=== PATIENT | female | born 1955 | race Caucasian/White ===

== ENCOUNTER → 2020-09-16 | Day surgery (SDC) | payer MEDICARE, OTHER ==
[~2020-09-16] MED LIST: ASPIR-LOW81 MG PO; ASPIRIN 325MG325 MG PO; ESTRACE2 MG PO; GABAPENTIN800 MG PO; HYDROCODON-ACE1 EAC2 PO; HYDROXYZINE HCL25 MG PO; LEVOTHYROXINE200 MC2 PO; LISINOPRIL5 MG PO; LOPRESSOR 25 MG25 MG PO; LOW DOSE ASPIRI81 MG PO; NEURONTIN800 MG PO; NITROGLYCERIN0.4 MG SL; NORCO 7.5-3251 EACH PO; NORVASC10 MG PO; OMEPRAZOLE20 M1 PO; OMEPRAZOLE20 MG PO; PROZAC20 MG PO; PROZAC40 MG PO; SEROQUEL100 MG PO; SEROQUEL25 MG PO; SIMVASTATIN10 MG PO; SYNTHROID200 MCG PO; VITAMIN C500 M4 PO; VITAMIN D21250 MCG PO; ZESTRIL40 MG PO
[2020-09-16 08:52] LABS: HEMOGLOBIN 13.9 gm/dl (12.3-15.3); RED BLOOD COUNT 4.45 M/UL (4.00-5.10)
[2020-09-16 09:30] LABS: BUN/CREATININE RATIO 21 (0-10)
== END | disposition home or self-care (01) ==
LOC: OR 07:50
PROVIDERS: Podiatrist Foot & Ankle Surgery
DX: S82.851A Displaced trimalleolar fracture of right lower leg, initial encounter for closed fracture (principal); M25.471 Effusion, right ankle; M85.871 Other specified disorders of bone density and structure, right ankle and foot; E89.0 Postprocedural hypothyroidism; I10 Essential (primary) hypertension; I25.10 Atherosclerotic heart disease of native coronary artery without angina pectoris; I25.2 Old myocardial infarction; E78.5 Hyperlipidemia, unspecified; J18.9 Pneumonia, unspecified organism; M79.7 Fibromyalgia; M19.90 Unspecified osteoarthritis, unspecified site; Z98.51 Tubal ligation status; Z79.82 Long term (current) use of aspirin; Z79.899 Other long term (current) drug therapy
CPT/HCPCS: 36415; 73610; 73630; 76000; 80048; 85027; C1713; C1769; J0171; J0690; J1885; J2001; J2250; J2405; J2704; J2795; J3010; J7120; Q4133

== ENCOUNTER → 2020-10-03 | Outpatient (CLI) | payer MEDICARE, OTHER | LOC: KOH-I 15:22 | DX: S82.851D Displaced trimalleolar fracture of right lower leg, subsequent encounter for closed fracture with routine healing (principal) | CPT/HCPCS: 73610 ==

== ENCOUNTER → 2020-10-17 | Outpatient (CLI) | payer MEDICARE, OTHER | LOC: KOH-I 11:00 | DX: S82.851A Displaced trimalleolar fracture of right lower leg, initial encounter for closed fracture (principal); S82.201A Unspecified fracture of shaft of right tibia, initial encounter for closed fracture; S82.401A Unspecified fracture of shaft of right fibula, initial encounter for closed fracture | CPT/HCPCS: 73610 ==

== ENCOUNTER → 2020-11-14 | Outpatient (CLI) | payer MEDICARE, OTHER | LOC: KOH-I 11:19 | DX: S82.851D Displaced trimalleolar fracture of right lower leg, subsequent encounter for closed fracture with routine healing (principal) | CPT/HCPCS: 73610 ==

== ENCOUNTER → 2020-12-05 | Outpatient (CLI) | payer MEDICARE, OTHER | LOC: KOH-I 13:12 | DX: S82.851D Displaced trimalleolar fracture of right lower leg, subsequent encounter for closed fracture with routine healing (principal); Z98.890 Other specified postprocedural states; X58.XXXD Exposure to other specified factors, subsequent encounter | CPT/HCPCS: 73610 ==

== ENCOUNTER → 2021-01-17 | Outpatient (CLI) | payer OTHER | LOC: KOH-I 15:15 | DX: S82.851A Displaced trimalleolar fracture of right lower leg, initial encounter for closed fracture (principal) | CPT/HCPCS: 73610 ==

== ENCOUNTER → 2021-02-14 | Outpatient (CLI) | payer MEDICARE, OTHER | LOC: KOH-I 14:33 | DX: S82.851A Displaced trimalleolar fracture of right lower leg, initial encounter for closed fracture (principal) | CPT/HCPCS: 73610 ==

== ENCOUNTER → 2021-02-24 | Outpatient (CLI) | payer OTHER | LOC: KOH-I 09:00 | DX: S82.854D Nondisplaced trimalleolar fracture of right lower leg, subsequent encounter for closed fracture with routine healing (principal); M85.871 Other specified disorders of bone density and structure, right ankle and foot | CPT/HCPCS: 73700 ==

== ENCOUNTER → 2021-05-16 | Outpatient (CLI) | payer OTHER | LOC: KOH-I 15:23 | DX: S82.851D Displaced trimalleolar fracture of right lower leg, subsequent encounter for closed fracture with routine healing (principal) | CPT/HCPCS: 73610 ==

== ENCOUNTER → 2022-05-01 | Outpatient (CLI) | payer MEDICARE | LOC: KOH-I 14:09 | DX: M25.571 Pain in right ankle and joints of right foot (principal) | CPT/HCPCS: 73610 ==